=== PATIENT | male | born 1955 | race Caucasian/White ===

== ENCOUNTER 2025-05-26 15:50 | Emergency (ER) | payer MEDICARE ==
[2025-05-26] MEDS ORDERED: NOREPINEPHRINE 8 MG/250 ML-D5W 250 ML ONE ×2 (16:30→20:28)
[2025-05-26 16:48] LABS: Hematocrit 36.3 % (42.0-52.0); Hemoglobin 11.7 g/dL (14.0-18.0); Mean Corpuscular Hemoglobin 29.8 pg (27.0-31.0); Mean Corpuscular Volume 92.2 fl (78.0-98.0); Platelet Count 206 10x3/uL (130-400); Red Blood Cell (RBC) Count 3.94 mill/uL (4.70-6.10); White Blood Cell (WBC) Count 17.3 10x3/uL (4.8-10.8)
[2025-05-26 17:00] LABS: Bicarbonate (HCO3v) 18.6 mmol/L (22.0-28.0); CO2 Tension (PvCO2) 43.6 mmHg (42.0-51.0); Calcium, Ionized 1.05 mmol/L (1.15-1.33); Chloride 110 mmol/L (98-107); Hemoglobin - Calc 10.7 g/dL (14.0-18.0); Potassium 3.6 mmol/L (3.5-5.1); Sodium 139 mmol/L (138-145); T. Carbon Dioxide 19.9 mmol/L (22.0-28.0); vO2 Saturation-calc 98.9 % (60.0-85.0)
[2025-05-26 17:27] LABS: MDiff Complete? YES; Manual Diff?? YES; Platelet Adequacy Comment Appears Adequate
[2025-05-26 18:50] LABS: ALT (SGPT) 11 U/L (Less than 45); AST (SGOT) 34 U/L (11-34); Albumin 3.2 g/dL (3.1-4.5); Alkaline Phosphatase 74 U/L (40-110); Anion Gap 23 mmol/L (10-20); BUN (Urea Nitrogen) 27 mg/dL (8.4-25.7); Bilirubin, Total 1.4 mg/dL (0.3-1.2); CK (CPK) 160 U/L (30-200); Calc. Creatinine Clearance 0 mL/min (70-130); Carbon Dioxide 14 mmol/L (23-31); Chloride 109 mmol/L (98-107); Globulin 3.0 g/dL (2.4-3.5); Glucose 99 mg/dL (80-115); Lipase 46 U/L (8-78); Magnesium 1.1 mg/dL (1.6-2.6); Potassium 4.1 mmol/L (3.5-5.1); Sodium 142 mmol/L (136-145)
[2025-05-26 18:55] LABS: Calcium 7.6 mg/dL (7.8-10.44)
== END 2025-05-26 20:32 | disposition short-term general hospital (02) ==
LOC: MADERS 15:50
DX: A41.9 Sepsis, unspecified organism (principal); R65.21 Severe sepsis with septic shock; I95.9 Hypotension, unspecified; J44.9 Chronic obstructive pulmonary disease, unspecified; E78.00 Pure hypercholesterolemia, unspecified; Z79.899 Other long term (current) drug therapy; Z79.51 Long term (current) use of inhaled steroids; Z87.891 Personal history of nicotine dependence
CPT/HCPCS: 71045; 80053; 82330; 82435; 82550; 82803; 83605; 83690; 83735; 84132; 84295; 85014; 85025; 87040; 94760; J2543; J3010; J3373; J7050; 36415; 96365; 96366; 96367; 96368; 96374; 96375